=== PATIENT | female | born 1980 | race Caucasian/White ===

== ENCOUNTER 2018-11-12 11:06 | Emergency (ER) | payer OTHER ==
[2018-11-12 12:15] VITALS: BMI 23.8
--- NOTE | 2018-11-12 13:07 | OBHP ---
Datetime: 11/12/2018 12:24 IP Adm Impression: , intrauterine IP Admit Plan: Observation/Evaluation Admit Comment, IP Provider: 38 y/o with IUP at EGA 19.1 Wks [place] by first trimest er US, who presents to [facility] sent by her care provider Dr Coleman for evaluation due to short c ervical length on OB US. Patient reports +FM. Patient denies BV, LOF, uterine CONTX, MORGAN, blurry visio n, CP, SOB, N/V/D, dysuria, fever or chills at this time. ROS: unremarkable, except as per HPI provider: Dr Coleman OBGYN: LMP . Denies STI, : patient reports x1 36 weeks NVD on her first pre gnancy. PMH: Denies FMH: Denies SOCHx: Denies ETOH/drugs/smoking ALL: NKA SURG: Laparoscopy Sx of endometriosis MEDS: PN vitamin LABS: pending records PE GEN: NAD HEENT: NCAT RESP: CTA b/l CV: RRR, S1S2 normal ABD: Gravid EXT: No edema A/P 38 y/o with IUP at EGA 19.1 Wks [place] by first trimester US, presenting to [facility] for evaluation of short cervix. -Monitor maternal VS -Monitor FHR -UA stat Case discussed with attending Dr Dustin Spear MD PGY1 Addendum by Dr. Chan: I have evaluated the patient independently and I agree with the above Lungs - PN: Normal Heart - PN: Normal HEENT - PN: Normal General - PN: Normal Comments, ACOG Physical Exam: see triage comment (Annotations: Data stored by CPN on behalf of user) EGA AdmitDate IP: 19.1 IP Chief Complaint: evaluation
[2018-11-12 13:09] LABS: SQUAMOUS EPITHIAL < 1 /hpf (0-5); URINE BACTERIA OCC (<OCC); URINE BILIRUBIN NEGATIVE (NEGATIVE); URINE BLOOD NEGATIVE (NEGATIVE); URINE CLARITY CLEAR (Clear); URINE COLOR YELLOW (YELLOW); URINE GLUCOSE (UA) NEG (NEGATIVE); URINE LEUKOCYTE ESTERASE NEG Leu/uL (Negative); URINE PROTEIN NEGATIVE (NEGATIVE); URINE UROBILINOGEN 0.2-1.0 mg/dL (0.2-1.0)
--- NOTE | 2018-11-12 14:02 | OBDCSUM ---
Datetime: 11/12/2018 13:33 Discharged to, Provider: Home Follow up at, Provider: Dr. Coleman Disch Instr Activity: Normal activity Disch Instr Diet: Regular Discharge Instructions, Provider: Routine instructions given Discharge Time: 11/12/2018 13:33 Follow up in weeks, Provider: Next scheduled appt Disch Referrals: None Contraception discussed, Prov: Yes Discharge Diagnosis Prov Other: cervical shortening in second trimester
[2018-11-12 18:28] VITALS: BP 100/62; PULSE 87; TEMP 98.5; O2SAT 97
== END 2018-11-12 13:33 | disposition home or self-care (01) ==
LOC: H.EROB2 11:06 → H.L&D 11:07 → H.EROB2 13:33
DX: O26.872 Cervical shortening, second trimester (principal); Z3A.19 19 weeks gestation of pregnancy